=== PATIENT | male | born 1985 | race Caucasian/White ===

== ENCOUNTER 2018-11-07 18:52 | Emergency (ER) | payer OTHER ==
[~2018-11-07] VITALS: Ht 182.9 cm; Wt 87.1 kg
--- NOTE | 2018-11-07 19:01 | NUR ---
PT BIBWIFE FOR H/A AT 2PM; PT AAOX4, PT ON MONITOR, VSS, NAD NOTED, PENDING MD GAONA
--- NOTE | 2018-11-07 19:08 | NUR ---
BEDSIDE FOR EVAL
--- NOTE | 2018-11-07 19:09 | NUR ---
CODE STROKE ACTIVATED PER ER MD
--- NOTE | 2018-11-07 19:10 | NUR ---
TELE STROKE ACTIVATED, CALLED TELE STROKE HOTLINE. AWAITING CALL BACK FROM NEUROLOGIST DR. JORDAN.
--- NOTE | 2018-11-07 19:11 | NUR ---
PANTOGRAPH I ENGRAVER AND NURSING CHECKMAN BEDSIDE
--- NOTE | 2018-11-07 19:12 | NUR ---
PT TO CT
--- NOTE | 2018-11-07 19:12 | NUR ---
TELE NEUROLOGIST ON THE PHONE WITH KELLY GUERIN.
[2018-11-07] MEDS ORDERED: IOHEXOL-350 100 ML VIAL IV ONE (19:14)
[2018-11-07] MEDS ORDERED: IV NS 0.9% 250 ML IV ONE (19:14)
[2018-11-07] MEDS ORDERED: CT SWABBABLE VALVE TRANS SET 1 EA INFUS.SET MC ONE (19:14)
[2018-11-07 19:21] LABS: BASOPHILS % (AUTO) 0.6 % (0.0-2.0); EOSINOPHILS % (AUTO) 1.1 % (0.0-6.0); HEMATOCRIT 43 % (39-51); HEMOGLOBIN 14.9 g/dL (13.5-17.5); LYMPHOCYTES % (AUTO) 38.5 % (20.0-44.0); MEAN CORPUSCULAR HGB CONC 35 g/dl (31.0-36.0); MEAN CORPUSCULAR VOLUME 88 fL (80-96); MONOCYTES # (AUTO) 0.6 /CMM (0.1-1.30); MONOCYTES % (AUTO) 11.5 % (2.0-12.0); NEUTROPHILS # (AUTO) 2.6 /CMM (1.8-8.9); NEUTROPHILS % (AUTO) 48.3 % (43.0-81.0); PLATELET COUNT (AUTO) 223 /CMM (150-450); RED BLOOD CELL COUNT(AUTO) 4.82 MIL/uL (4.5-6.0); WHITE BLOOD COUNT (AUTO) 5.3 K/uL (4.3-11.0)
[2018-11-07 19:28] LABS: CALCIUM, SERUM 8.8 mg/dL (8.5-10.1); CARBON DIOXIDE 28 mmol/L (21-32); CHLORIDE 104 mmol/L (98-107); CREATININE 0.9 mg/dL (0.6-1.3); GLUCOSE 130 mg/dL (74-106); POTASSIUM 3.3 mmol/L (3.5-5.1); SODIUM SERUM 140 mmol/L (136-145); UREA NITROGEN, BLOOD 10 mg/dL (7-18)
[2018-11-07] MEDS ORDERED: IV NS 0.9% 1,000 ML BAG IV ONE (19:30)
[2018-11-07 19:34] LABS: ALANINE AMINOTRANSFERASE 31 U/L (12-78); ALBUMIN 4.7 g/dL (3.4-5.0); ALKALINE PHOSPHATASE 77 U/L (46-116); ASPARTATE AMINOTRANSFERASE 23 U/L (15-37); BILIRUBIN,DIRECT 0.2 mg/dL (0.0-0.2); TOTAL PROTEIN, SERUM 7.8 g/dL (6.4-8.2)
[2018-11-07 19:51] LABS: CHOLESTEROL 124 mg/dL (<200); HDL CHOLESTEROL 40 mg/dL (40-60); LDL 80 mg/dL (0-99); TRIGLYCERIDES 83 mg/dL (30-150)
[2018-11-07] MEDS ORDERED: KETOROLAC TROMETHAMINE INJ 30 MG/ML VIAL IV ONE (20:00)
[2018-11-07] MEDS ORDERED: KETOROLAC TROMETHAMINE INJ 30 MG/ML VIAL ONE (20:03)
--- NOTE | 2018-11-07 20:12 | NUR ---
PT GIVEN FLUIDS, TORODOL, COMFORTABLE
--- NOTE | 2018-11-07 21:43 | NUR ---
Patient discharged to home in stable condition. Written and verbal after care instructions given. Patient verbalizes understanding of instruction. IV removed. Catheter intact and site benign. Pressure and 4x4 applied to site. No bleeding noted.
[2018-11-07 21:44] VITALS: BP 129/60
== END 2018-11-07 21:46 | disposition home or self-care (01) ==
LOC: ER 18:54
DX: R51 Headache (principal); Z60.2 Problems related to living alone; Z86.73 Personal history of transient ischemic attack (TIA), and cerebral infarction without residual deficits
CPT/HCPCS: 36415; 70450; 70496; 70498; 71045; 80048; 80061; 80076; 82962; 84484; 85025; 85730; 93005; 96374; 99284; J1885; J7030; J7050; Q9967